=== PATIENT | female | born 1955 | race Caucasian/White ===

== ENCOUNTER → 2023-03-21 09:36 | Outpatient (REF) | payer OTHER, SELFPAY | LOC: PET 09:36 | PROVIDERS: ATTENDING PHYSICIAN Internal Medicine Hematology & Oncology | DX: C50.312 Malignant neoplasm of lower-inner quadrant of left female breast (principal) | CPT/HCPCS: 78815; A9552 ==

== ENCOUNTER 2023-06-13 06:31 | Day surgery (SDC) | payer OTHER, SELFPAY ==
[2023-06-09 08:06] VITALS: BMI 18.6
[2023-06-09 08:49] LABS: Hematocrit 36.8 % (37.0-47.0); Hemoglobin 12.3 g/dL (12.0-16.0); Mean Corp Hgb Conc. 33.4 g/dL (33.0-37.0); Mean Corpuscular Hgb 31.9 pg (27.0-31.0); Mean Corpuscular Volume 95.3 fL (81.0-99.0); Mean Platelet Volume 9.5 fL (7.4-10.4); Platelet Count 304 10^3/uL (130-400); Red Blood Cell Count 3.86 10^6/uL (4.20-5.40); Red Cell Dist. Width 12.9 % (11.5-14.5); White Blood Cell Count 6.6 10^3/uL (4.8-10.8)
[2023-06-09 08:57] LABS: INR 0.99; PT 13.1 Sec (11.4-14.6)
[2023-06-09 08:58] LABS: APTT 31.7 Sec (23.4-35.0)
[2023-06-09 10:05] LABS: Blood Urea Nitrogen 18 mg/dl (7-17); Calcium 9.8 mg/dl (8.4-10.2); Carbon Dioxide 27 mmol/L (22-30); Chloride 102 mmol/L (98-107); Estimated Creatinine Clearance 30 ml/min; Glucose 89 mg/dl (70-99); Potassium 4.3 mmol/L (3.5-5.1); Sodium 136 mmol/L (135-145); eGFR 44.24
[2023-06-09 10:27] LABS: Urine Albumin Negative (Neg - Trace); Urine Bilirubin Negative (Negative); Urine Character Clear (Clear); Urine Color Yellow; Urine Glucose Negative (Negative); Urine Ketone Negative (Negative); Urine Leukocyte 1+ (Negative); Urine Nitrite Negative (Negative); Urine Occult Blood Negative (Negative); Urine Urobilinogen Negative (Neg - 1+)
[2023-06-09 11:16] LABS: Urine Red Blood Cell 0-2 /HPF (0-2); Urine White Cell 0-2 /HPF (0-5)
--- NOTE | 2023-06-09 14:09 | PTCARENOTE ---
Office notified of abn Creatinine.
[2023-06-13] VITALS (8 sets, daily range): BP systolic 136–153; BP diastolic 71–81; BMI 18.6
[2023-06-13] MEDS: Pyridium 200 MG PO ×2 (12:00→14:56)
[2023-06-13] MEDS: NORMOSOL-R 1000 IV (12:01)
[2023-06-13] MEDS: DETROL LA 2 MG PO (14:33)
== END 2023-06-13 15:32 | disposition home or self-care (01) ==
LOC: SDS 06:31
PROVIDERS: ATTENDING PHYSICIAN Surgery; FAMILY PHYSICIAN Family Medicine; OTHER PHYSICIAN Internal Medicine Hematology & Oncology
DX: N13.30 Unspecified hydronephrosis (principal); C50.919 Malignant neoplasm of unspecified site of unspecified female breast; R59.0 Localized enlarged lymph nodes
CPT/HCPCS: 52332; 36415; 74420; 76000; 80048; 81003; 81015; 85027; 85610; 85730; 93005; C2617

== ENCOUNTER → 2023-06-15 12:33 | Outpatient (REF) | payer OTHER, SELFPAY | LOC: PET 12:33 | PROVIDERS: ATTENDING PHYSICIAN Internal Medicine Hematology & Oncology | DX: C50.312 Malignant neoplasm of lower-inner quadrant of left female breast (principal) | CPT/HCPCS: 78815; A9552 ==

== ENCOUNTER → 2023-06-20 13:02 | Outpatient (REF) | payer OTHER, SELFPAY | LOC: RCS 13:02 | PROVIDERS: ATTENDING PHYSICIAN Internal Medicine Cardiovascular Disease; FAMILY PHYSICIAN Family Medicine | DX: C50.912 Malignant neoplasm of unspecified site of left female breast (principal); T45.1X5D Adverse effect of antineoplastic and immunosuppressive drugs, subsequent encounter; Z92.3 Personal history of irradiation | CPT/HCPCS: 93306; 93356 ==

== ENCOUNTER → 2023-07-21 12:02 | Outpatient (REF) | payer OTHER, SELFPAY ==
[2023-07-21 12:00] LABS: ALT (SGPT) 65 U/L (0-35); AST (SGOT) 61 U/L (14-36); Albumin 3.7 g/dl (3.5-5.0); Alkaline Phosphatase 150 U/L (38-126); Blood Urea Nitrogen 22 mg/dl (7-17); Calcium 9.3 mg/dl (8.4-10.2); Carbon Dioxide 27 mmol/L (22-30); Chloride 107 mmol/L (98-107); Glucose 78 mg/dl (70-99); Potassium 3.7 mmol/L (3.5-5.1); Sodium 139 mmol/L (135-145); Total Bilirubin 0.6 mg/dl (0.2-1.3); Total Protein 6.2 g/dl (6.3-8.2); eGFR > 60.00
== END ==
LOC: OIDL 12:02
PROVIDERS: ATTENDING PHYSICIAN Internal Medicine Hematology & Oncology
DX: C50.912 Malignant neoplasm of unspecified site of left female breast (principal)
CPT/HCPCS: 80053

== ENCOUNTER → 2023-09-07 12:38 | Outpatient (REF) | payer OTHER, SELFPAY | LOC: RAD 12:38 | PROVIDERS: ATTENDING PHYSICIAN Internal Medicine Hematology & Oncology; FAMILY PHYSICIAN Family Medicine | DX: C50.912 Malignant neoplasm of unspecified site of left female breast (principal); C50.312 Malignant neoplasm of lower-inner quadrant of left female breast; C79.51 Secondary malignant neoplasm of bone; I82.621 Acute embolism and thrombosis of deep veins of right upper extremity | CPT/HCPCS: 71260; 74160; Q9967 ==

== ENCOUNTER → 2023-11-21 13:15 | Outpatient (REF) | payer OTHER, SELFPAY | LOC: RCS 13:15 | PROVIDERS: ATTENDING PHYSICIAN Internal Medicine Hematology & Oncology; FAMILY PHYSICIAN Family Medicine; REFERRING PHYSICIAN Internal Medicine Cardiovascular Disease | DX: C50.912 Malignant neoplasm of unspecified site of left female breast (principal); C50.312 Malignant neoplasm of lower-inner quadrant of left female breast; C79.51 Secondary malignant neoplasm of bone; I82.621 Acute embolism and thrombosis of deep veins of right upper extremity | CPT/HCPCS: 93306; 93356 ==

== ENCOUNTER → 2023-12-01 09:33 | Outpatient (REF) | payer OTHER, SELFPAY | LOC: PET 09:33 | PROVIDERS: ATTENDING PHYSICIAN Internal Medicine Hematology & Oncology | DX: C50.312 Malignant neoplasm of lower-inner quadrant of left female breast (principal) | CPT/HCPCS: 78815; A9552 ==

== ENCOUNTER → 2024-02-13 13:16 | Outpatient (REF) | payer OTHER, SELFPAY ==
[2024-02-13 13:19] LABS: % Basophils 0.6 % (0-2); % Eosinophils 2.3 % (0-6); % Immature Granulocytes 0.2 % (0-0.5); % Lymphocytes 13.1 % (20.5-51.1); % Monocytes 6.1 % (1.7-9.3); % Neutrophils 77.7 % (42.2-75.2); Absolute Basophils 0.1 10^3/uL (0-0.2); Absolute Eosinophils 0.3 10^3/uL (0-0.7); Absolute Lymphocytes 1.5 10^3/uL (1.2-3.4); Absolute Monocytes 0.7 10^3/uL (0.1-0.6); Absolute Neutrophils 8.7 10^3/uL (1.4-6.5); Hematocrit 35.2 % (37.0-47.0); Hemoglobin 11.6 g/dL (12.0-16.0); Mean Corpuscular Hgb 33.2 pg (27.0-31.0); Mean Corpuscular Volume 100.9 fL (81.0-99.0); Mean Platelet Volume 9.1 fL (7.4-10.4); Platelet Count 259 10^3/uL (130-400); Red Blood Cell Count 3.49 10^6/uL (4.20-5.40); Red Cell Dist. Width 17.2 % (11.5-14.5); White Blood Cell Count 11.2 10^3/uL (4.8-10.8)
[2024-02-13 13:53] LABS: ALT (SGPT) 104 U/L (0-35); AST (SGOT) 114 U/L (14-36); Albumin 3.3 g/dl (3.5-5.0); Alkaline Phosphatase 567 U/L (38-126); Blood Urea Nitrogen 17 mg/dl (7-17); Carbon Dioxide 26 mmol/L (22-30); Chloride 105 mmol/L (98-107); Glucose 127 mg/dl (70-99); Potassium 4.4 mmol/L (3.5-5.1); Sodium 138 mmol/L (135-145); Total Bilirubin 0.7 mg/dl (0.2-1.3); Total Protein 5.9 g/dl (6.3-8.2); eGFR > 60.00
== END ==
LOC: OIDL 13:16
PROVIDERS: ATTENDING PHYSICIAN Internal Medicine Hematology & Oncology
DX: C50.912 Malignant neoplasm of unspecified site of left female breast (principal); C50.312 Malignant neoplasm of lower-inner quadrant of left female breast; C79.51 Secondary malignant neoplasm of bone; I82.621 Acute embolism and thrombosis of deep veins of right upper extremity
CPT/HCPCS: 80053; 85025

== ENCOUNTER → 2024-02-29 11:30 | Outpatient (REF) | payer OTHER, SELFPAY | LOC: PET 11:30 | PROVIDERS: ATTENDING PHYSICIAN Internal Medicine Hematology & Oncology | DX: C50.312 Malignant neoplasm of lower-inner quadrant of left female breast (principal) | CPT/HCPCS: 78815; A9552 ==

== ENCOUNTER → 2024-03-06 13:43 | Outpatient (REF) | payer OTHER, SELFPAY | LOC: RCS 13:43 | PROVIDERS: ATTENDING PHYSICIAN Internal Medicine Hematology & Oncology; FAMILY PHYSICIAN Family Medicine; REFERRING PHYSICIAN Internal Medicine Cardiovascular Disease | DX: C50.912 Malignant neoplasm of unspecified site of left female breast (principal); C50.312 Malignant neoplasm of lower-inner quadrant of left female breast; C79.51 Secondary malignant neoplasm of bone; I82.621 Acute embolism and thrombosis of deep veins of right upper extremity | CPT/HCPCS: 93306; 93356 ==

== ENCOUNTER → 2024-07-06 08:56 | Outpatient (REF) | payer OTHER, SELFPAY | LOC: PET 08:56 | PROVIDERS: ATTENDING PHYSICIAN Nurse Practitioner Primary Care | DX: C50.312 Malignant neoplasm of lower-inner quadrant of left female breast (principal) | CPT/HCPCS: 78815; A9552 ==

== ENCOUNTER → 2024-09-10 13:45 | Outpatient (REF) | payer OTHER, SELFPAY | LOC: RCS 13:45 | PROVIDERS: ATTENDING PHYSICIAN Internal Medicine Cardiovascular Disease; FAMILY PHYSICIAN Family Medicine | DX: C50.912 Malignant neoplasm of unspecified site of left female breast (principal); T45.1X5D Adverse effect of antineoplastic and immunosuppressive drugs, subsequent encounter | CPT/HCPCS: 93306; 93356 ==

== ENCOUNTER → 2024-11-08 12:31 | Outpatient (REF) | payer OTHER, SELFPAY ==
[2024-11-08 12:53] LABS: Glucose 77 mg/dl (70-99)
== END ==
LOC: PET 12:31
PROVIDERS: ATTENDING PHYSICIAN Internal Medicine Hematology & Oncology
DX: C50.912 Malignant neoplasm of unspecified site of left female breast (principal); C50.312 Malignant neoplasm of lower-inner quadrant of left female breast
CPT/HCPCS: 82947

== ENCOUNTER 2024-12-08 22:15 | Emergency (ER) | payer OTHER, SELFPAY ==
[2024-12-08 22:28] VITALS: BP 109/57
[2024-12-08 22:57] LABS: Hematocrit 35.4 % (37.0-47.0); Hemoglobin 11.9 g/dL (12.0-16.0); Mean Corp Hgb Conc. 33.6 g/dL (33.0-37.0); Mean Corpuscular Volume 101.1 fL (81.0-99.0); Platelet Count 165 10^3/uL (130-400); Red Cell Dist. Width 16.1 % (11.5-14.5)
[2024-12-08 23:01] VITALS: BMI 19.2
[2024-12-08 23:06] LABS: ALT (SGPT) 160 U/L (0-35); AST (SGOT) 111 U/L (14-36); Albumin 3.4 g/dl (3.5-5.0); Alkaline Phosphatase 372 U/L (38-126); Blood Urea Nitrogen 26 mg/dl (7-17); Calcium 9.6 mg/dl (8.4-10.2); Carbon Dioxide 28 mmol/L (22-30); Chloride 105 mmol/L (98-107); Estimated Creatinine Clearance 59 ml/min; Glucose 122 mg/dl (70-99); Lipase 320 U/L (23-300); Potassium 3.4 mmol/L (3.5-5.1); Sodium 134 mmol/L (135-145); Total Protein 6.3 g/dl (6.3-8.2); eGFR > 60.00
--- NOTE | 2024-12-08 23:06 | EDRN ---
Pt had indigestion since 1629 today with reflux and sob along with her usual fatigue s/p chemo and low bp that pt has had couple days. Last chemo was . Pt took antacid at 2129 and 'it's kicked in' - indigestion feeling has dissipated a
lot. Pt says her chest still feels tight. Pt had abd pain earlier from constipation which she has been treating with senna which caused some diarrhea today. Nausea, no vomiting. No fever/chills/cough, urinary symptoms.
[2024-12-08 23:10] VITALS: BP 100/51
[2024-12-08 23:10] LABS: Troponin I < 0.012 ng/ml
[2024-12-08 23:16] LABS: Absolute Neutrophils -Man Diff 67.0 10^3/uL (1.4-6.5); Normal RBC Morphology Yes; Platelets Checked Yes; Total Cells Counted 100
[2024-12-09] VITALS: BP 96/47
[2024-12-09 01:19] VITALS: BP 88/49
[2024-12-09 02:51] VITALS: BP 98/54
--- NOTE | 2024-12-09 02:58 | ED.GENMED ---
History of Present Illness
General
Chief Complaint: Chest Pain
Source: patient, records, spouse and previous radiology exam (PET scans every 3 to 4 months, most recently November 08, 2024. Showing extensive thoracolumbar bony metastatic disease otherwise unremarkable and unchanged from previous.)
Exam Limitations: none
Time Seen by Provider: 12/09/24 01:12
Nursing documentation reviewed up to this point in time: agreed with
History of Present Illness
History of Present Illness:
The patient is a 69-year-old female with a history of breast cancer currently undergoing chemotherapy every three weeks. She began experiencing intense chest discomfort and nausea on the afternoon of the visit, which was described as similar to
indigestion pain that she has had occasionally. The patient reported that the pain was more pronounced in the lower chest and abdomen. She experienced shortness of breath and noted that the discomfort worsened with deep breaths. However, she did not
experience any sweating or palpitations. The patient took an antacid, which seemed to alleviate the discomfort. She denied any history of chest tightness but mentioned ongoing nausea potentially related to her chemotherapy treatment.
The patient�s liver enzymes were noted to be elevated, which she attributes to the chemotherapy. She mentioned past issues with constipation, which she manages with Chikis, although this sometimes results in diarrhea.
Currently pain-free and comfortable.
She has not had a fever. No cough. No leg pain or swelling. No shortness of breath.
Last chemotherapy was earlier this week with a dose of Neupogen just yesterday.
Past History
Past History
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
ED Past Surgical History: Other (mastectomy, left side)
Social History
Tobacco: Non-smoker
Alcohol: Occasional (Wine)
Personal:
Living: with family
Employment: Retired
Family History
Family History: Other (Noncontributory)
Phy Exam
Physical Exam
Physical Exam:
GENERAL: 69-year-old woman appears her stated age, bright and alert, pleasant, appears in no acute distress. is accompanying. She is afebrile. Vital signs within normal limits.
EYE: pupils equal and reactive. anicteric
NECK: Supple, nontender, no meningismus, no significant adenopathy.
ENT: posterior pharynx is clear, oral mucosa is moist. TM clear b/l, nares patent.
CARDIAC: Regular rate and rhythm. no murmur. Port-A-Cath palpable right upper chest wall.
LUNGS: Clear breath sounds bilaterally, no acute respiratory distress, no wheezes/rales/rhonchi
ABDOMEN: Soft, nondistended, without focal tenderness, no r/g, no cvat. normoactive BS.
NEUROLOGICAL: Alert and oriented x3, no focal neuro deficits.
SKIN: Warm and dry, normal color, skin intact. No rash.
MUSCULOSKELETAL: No C/C/E. peripheral pulses are full and equal b/l. No palpable tenderness.
PSYCH: Normal and appropriate interaction.
Scores
Heart Score for Chest Pain Patients
STEMI patient?: No
History: Slightly or Non-Suspicious
ECG: Normal
Age: >/= 65 years
Risk Factors: No Risk Factors
Troponin: </= Normal Limit
Heart Score for Chest Pain Patients: 2
Heart Score Risk: 2.5% MACE over next 6 weeks
Course
Orders/Labs/Results
Orders:
Orders
12/08/24 22:16
Electrocardiogram (*1) Urgent
Reason for Study: Chest Pain
EKG- Treatment ONCE
12/08/24 22:40
Complete Blood Count/With Diff Urgent
Comprehensive Metabolic Panel Urgent
Lipase Urgent
Manual Differential Urgent
Troponin I Urgent
12/09/24 01:32
US Abdomen Complete/Upper Urgent
Comment:
Reason For Exam: Acute upper abd pain, N, elevated LFT's
Abnormal Lab Results
12/08/24
22:40
WBC 69.8 H* 10^3/uL
(4.8-10.8)
RBC 3.50 L 10^6/uL
(4.20-5.40)
Hgb 11.9 L g/dL
(12.0-16.0)
Hct 35.4 L %
(37.0-47.0)
MCV 101.1 H fL
(81.0-99.0)
MCH 34.0 H pg
(27.0-31.0)
RDW 16.1 H %
(11.5-14.5)
Abs Neuts (Manual) 67.0 H 10^3/uL
(1.4-6.5)
Segmented Neutrophils 94 H %
(42-75)
Lymphocytes (Manual) 4 L %
(20-51)
Sodium 134 L mmol/L
(135-145)
Potassium 3.4 L mmol/L
(3.5-5.1)
BUN 26 H mg/dl
(7-17)
Glucose 122 H mg/dl
(70-99)
Total Bilirubin 1.4 H mg/dl
(0.2-1.3)
AST 111 H U/L
(14-36)
ALT 160 H U/L
(0-35)
Alkaline Phosphatase 372 H U/L
(38-126)
Albumin 3.4 L g/dl
(3.5-5.0)
Lipase 320 H U/L
(23-300)
12/08/24 22:40
12/08/24 22:40
Vital Signs
Initial and Last Documented VS:
Initial Vital Signs
Temp Pulse Resp BP Pulse Ox
99.0 F 77 16 109/57 99
12/08/24 22:28 12/08/24 22:28 12/08/24 22:28 12/08/24 22:28 12/08/24 22:28
Last Documented Vital Signs
Temp Pulse Resp BP Pulse Ox
99.0 F 75 16 94/44 96
12/08/24 22:28 12/09/24 03:00 12/09/24 03:00 12/09/24 03:00 12/09/24 03:08
MDM/Problems Addressed
Differential Diagnosis Includes:
The Differential Diagnosis includes, in no particular order and is not limited to:
- Gastroesophageal reflux disease (GERD)
- Gallbladder disease (e.g., cholelithiasis, cholecystitis)
- Peptic ulcer disease
- Pancreatitis
- Myocardial infarction (less likely due to normal EKG and enzyme tests)
- Pulmonary embolism
- Costochondritis
- Esophageal spasm
- Pleural effusion
- Hepatic dysfunction secondary to chemotherapy
MDM/Problems Addressed:
Acute chest pain, upper abdominal pain with nausea
Patient is currently pain-free and comfortable. Afebrile.
EKG is unremarkable, unchanged from previous.
Labs thus far reveal significantly elevated white blood cell count of 69.8 however patient received a dose of Neupogen just yesterday. Mild but stable anemia.
Chemistries reveal mildly elevated LFTs, mildly elevated T. bili as well as very minimally elevated lipase of 320.
She has had elevated LFTs previously with unremarkable viral hepatitis workup and elevated LFTs thought to be related to chemotherapy. Dose has been adjusted down.
With acute chest pain, upper abdominal pain must also consider acute cholecystitis, biliary colic, pancreatitis.
Troponin is negative. With ongoing discomfort since this afternoon, negative troponin and unremarkable EKG, ACS is unlikely.
Will plan to check abdominal ultrasound. Continue to observe for return of pain.
Chronic conditions affecting care: Immunosuppressed and Cancer
*Radiology
Radiology exam reviewed: radiology read reviewed
*Pulse Oximetry
SaO2: 96
Oxygen Mode of Delivery: Room air
Patient hypoxic: no
*EKG
Interpreted by ED Provider?: Yes
Interpretation: normal
Comparison EKG: no changes
Rate: normal
Rhythm: sinus
Rod[place]: normal axis
Interval: normal interval
QRS Pattern: normal QRS
Ischemia: no ischemia
*Case Management Director Interpretation
Rate: normal
Interpretation: normal
Rhythm: sinus
*Critical Care Note
Total Time (30-74mins, 75-104mins- exclusive of procedures): Not Applicable
Update Note
Update Note:
03:00
Patient remains pain-free and comfortable.
No chest pain, no abdominal pain and abdomen is soft without appreciable tenderness.
Abdominal ultrasound does note some gallstones but negative Lan sign. Normal common bile duct at 4 mm. No leticia-cholecystic fluid.
Patient may have suffered an episode of biliary colic tonight versus acid reflux as she notes resolution after a dose of antiacid.
As she remains pain-free and comfortable and no evidence of cholecystitis on ultrasound, at this point no indication for hospitalization.
I have recommended that she maintain a strict low-fat diet.
Will plan for prompt follow-up with her oncologist.
Strict return precautions discussed.
ED Attending Note
-
Portions of this chart may have been created with voice recognition software.� Occasional wrong word or��sound alike� substitutions may have occurred due to the inherent limitations of voice recognition software.
Discharge Plan
Departure
Patient Disposition: Home (Routine Discharge)
Date of Disposition: 12/09/24
Time of Disposition: 03:00
Patient with high blood pressure during this ER visit?: No
Condition: Good
Discharge Problem:
Acute chest pain, Cholelithiases, Acute biliary colic vs GERD
Instructions: Low-fat diet, Gallstones - ED (DC)
Prescriptions:
No Action
ondansetron [Zofran ODT] 4 mg Tablet,Disintegrating
4 mg PO PRN PRN (Reason: nausea)
Enhertu 100 mg Recon Soln
IV Q3W
Patient Comments:
pt unsure of dosage
Nyvepria 6 mg/0.6 mL Syringe
SC Q3W
Patient Comments:
pt does not know dosage
Xgeva
SC Q6W
Patient Comments:
pt does not know dosage
Referrals:
Juli Pena MD [Active, Oncology] - Call in 1-3 days for appt
Raji Avila MD [Active, Surgical] - Call in 1-3 days for appt
UNKNOWN - PT DOES,NOT KNOW [Family Provider]
Interventions
Interventions:
*Risk Screen - Suicide Last Done: 12/08/24 22:28
*General Assessment Last Done: 12/08/24 22:28
*Neglect/Abuse Screening Last Done: 12/08/24 22:28
*ED- Fall Risk Assessment Last Done: 12/08/24 23:21
*ED COVID-19 Vaccine History Last Done: 12/08/24 23:01
*ED Influenza Vaccine History Last Done: 12/08/24 23:01
*Nursing Disposition Last Done: 12/09/24 03:15
ED- Cardiac Assessment Last Done: 12/08/24 23:16
Discharge Date and Time
Discharge Date/Time: 12/09/24 03:15
Print Language: YI
[2024-12-09 03:00] VITALS: BP 94/44
== END 2024-12-09 03:15 | disposition home or self-care (01) ==
LOC: EMR 22:15
PROVIDERS: Student in an Organized Health Care Education/Training Program; EMERGENCY PHYSICIAN Emergency Medicine
DX: R07.9 Chest pain, unspecified (principal); K80.20 Calculus of gallbladder without cholecystitis without obstruction; D72.829 Elevated white blood cell count, unspecified; D64.9 Anemia, unspecified; C50.919 Malignant neoplasm of unspecified site of unspecified female breast; C79.51 Secondary malignant neoplasm of bone; Z90.12 Acquired absence of left breast and nipple
CPT/HCPCS: 99284; 76700; 80053; 83690; 84484; 85025; 93005